=== PATIENT | male | born 1990 | race Caucasian/White ===

== ENCOUNTER 2022-08-16 11:06 | Emergency (ER) | payer OTHER, SELFPAY ==
[2022-08-16 11:10] VITALS: BP 132/81; PULSE 69; RESP 16; TEMP 36.9; O2SAT 98
--- NOTE | 2022-08-16 11:30 | DI.RAD_ITS ---
Exam(s) XR CLAVICLE LT EXAM: XR CLAVICLE LT CLINICAL HISTORY: trauma mid clavical pain TECHNIQUE: 2D digital imaging was performed of the left clavicle. Two images were obtained. AP and axial views were obtained. COMPARISON: No exams were available for comparison FINDINGS: BONES: There is an acute comminuted fracture of the midshaft of the left clavicle. The lateral fragm ent is inferiorly displaced relative to the medial fragment and there is overlapping present. No bon y destructive lesion is seen. JOINTS: No dislocation present. SOFT TISSUE: Normal. IMPRESSION: Acute comminuted displaced fracture of the midshaft of the left clavicle. DATA REPOSITORY: RADIATION DOSE DELIVERED:
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
[2022-08-16] MEDS: Acetaminophen 500 MG TAB 1000 MG PO (11:45)
== END 2022-08-16 13:30 | disposition home or self-care (01) ==
PROVIDERS: Emergency Provider Nurse Practitioner Family
DX: V19.88XA Pedal cyclist (driver) (passenger) injured in other specified transport accidents, initial encounter; S42.002A Fracture of unspecified part of left clavicle, initial encounter for closed fracture
CPT/HCPCS: 99283; 73000